=== PATIENT | female | born 1970 | race Caucasian/White ===

== ENCOUNTER 2025-05-10 06:40 | Emergency (ER) | payer MEDICARE, OTHER ==
[~2025-05-10] VITALS: Ht 162.6 cm; Wt 81.8 kg
[2025-05-10 07:03] VITALS: BP 147/97; PULSE 69; RESP 18; TEMP 97.7; O2SAT 96
[2025-05-10] MEDS ORDERED: ACET-3385 PO (07:09)
[2025-05-10 07:42] LABS: COVID AG,FIA SOURCE NASAL SWAB
[2025-05-10 08:29] LABS: SARS-COV2 (COVID) ANTIGEN,FIA Negative (Negative)
[2025-05-10 08:30] LABS: INFLUENZA TYPE A NEGATIVE FOR TYPE A (NEGATIVE); INFLUENZA TYPE B NEGATIVE FOR TYPE B (NEGATIVE)
== END 2025-05-10 07:57 | disposition left against medical advice (07) ==
LOC: EMS 07:00
DX: R09.81 Nasal congestion (principal); R05.9 Cough, unspecified; R51.9 Headache, unspecified; Z53.21 Procedure and treatment not carried out due to patient leaving prior to being seen by health care provider; Z20.822 Contact with and (suspected) exposure to COVID-19
CPT/HCPCS: 87804; 99281; Z7502